=== PATIENT | female | born 1955 | race Caucasian/White ===

== ENCOUNTER 2017-08-10 10:36 | Outpatient (CLI) | payer OTHER ==
--- NOTE | 2017-08-11 12:51 | Mammography Report ---
DIGITAL SCREENING MAMMOGRAM: 08/10/2017 CLINICAL INDICATION: A 62-year-old with history of benign biopsy for screening. COMPARISON: 09/2014, 10/2012 TECHNIQUE: Routine CC and MLO projections were obtained of the breasts. FINDINGS: The breasts demonstrate scattered fibroglandular densities bilaterally. Biopsy marker in the right upper inner central breast is stable. No suspicious masses, clustered microcalcifications, or regions of architectural distortion are identified. IMPRESSION: BENIGN FINDINGS. RECOMMENDATION: Routine annual screening unless otherwise clinically indicated. BIRADS CATEGORY 2 - BENIGN FINDINGS. STANDARD QUALIFYING STATEMENTS 1. This examination was reviewed with the aid of Computer-Aided Detection (CAD). 2. A negative or benign imaging report should not delay biopsy if clinically suspicious findings are present. Consider surgical consultation if warranted. More than 5% of cancers are not identified by i maging. 3. Dense breasts may obscure an underlying neoplasm. JOB #: [id number] EXT JOB #:[id number]
== END 2017-08-10 10:37 | disposition home or self-care (01) ==
LOC: DI.S 10:36
PROVIDERS: ATTEND Family Medicine
DX: Z12.31 Encounter for screening mammogram for malignant neoplasm of breast (principal)
CPT/HCPCS: 77067

== ENCOUNTER 2019-02-09 13:39 | Outpatient (CLI) | payer MEDICARE, OTHER ==
--- NOTE | 2019-02-09 15:00 | Mammography Report ---
Reason: ENCOUNTER FOR SCREENING MAMMOGRAM FOR MALIGNANT NE Procedure Date: 02/09/2019 Accession Number: [id number] / [id number] Procedure: [facility] - Screening Mammo w/Misael CPT Code: FULL RESULT: EXAM: Screening Mammo w/Misael DATE: 02/09/2019 2:14 PM CLINICAL HISTORY: Routine screening TECHNIQUE: (B) - Bilateral CC and MLO views were obtained. COMPARISON: 08/10/2017, 09/20/2014, 10/15/2012 PARENCHYMAL PATTERN: (A) - The breasts demonstrate scattered fibroglandular densities bilaterally. FINDINGS: No significant interval change on the LEFT. A few scattered nodular densities are similar to previous There are no suspicious masses, calcifications, or areas of distortion. Stable RIGHT breast biopsy clip. In the right periareolar region 9:00 position is an enlarging nodule immediately deep to the skin surface for which ultrasound is suggested. Other scattered nodular densities in the right breast are stable. IMPRESSION: Incomplete right examination. BI-RADS category 0. Negative left breast RECOMMENDATION: (ADDUS) - Targeted ultrasound recommended. Right periareolar region. BI-RADS CATEGORY: (0) - Incomplete Examination - need additional evaluation. STANDARD QUALIFYING STATEMENTS: 1. This examination was not reviewed with the aid of Computer-Aided Detection (CAD). 2. A negative or benign imaging report should not preclude biopsy if clinically suspicious findings are present. 3. Dense breasts may obscure an underlying neoplasm. 4. This examination was reviewed with the aid of 3D breast imaging (tomosynthesis).
== END 2019-02-09 13:40 | disposition home or self-care (01) ==
LOC: DI 13:39
PROVIDERS: ATTEND Nurse Practitioner Family
DX: Z12.31 Encounter for screening mammogram for malignant neoplasm of breast (principal); R92.8 Other abnormal and inconclusive findings on diagnostic imaging of breast
CPT/HCPCS: 77063; 77067

== ENCOUNTER 2020-06-11 09:58 | Outpatient (CLI) | payer MEDICARE, OTHER ==
--- NOTE | 2020-06-11 11:49 | Ultrasound Report ---
PROCEDURE: Duplex Ext Veins Left INDICATIONS: VERICOSE VEINS TECHNIQUE: Real-time imaging, as well as color and pulse Doppler interrogation, were performed of the lower extr emity deep veins from the inguinal ligament to the popliteal fossa. COMPARISON: None. FINDINGS: The deep veins are normally compressible, and free of intraluminal thrombus. Color and pu lse Doppler demonstrate normal phasic intraluminal flow. There is normal augmentation response to di stal compression maneuver. IMPRESSION: No deep venous thrombosis. Reviewed by: Cely العراقي MD on 06/11/2020 11:48 AM PDT Approved by: Cely العراقي MD on 06/11/2020 11:48 AM PDT Station ID: [id number]
== END 2020-06-11 09:59 | disposition home or self-care (01) ==
LOC: DI 09:58
PROVIDERS: ATTEND Nurse Practitioner Family
DX: I83.819 Varicose veins of unspecified lower extremity with pain (principal)

== ENCOUNTER 2022-01-31 07:10 | Outpatient (CLI) | payer MEDICARE, OTHER ==
--- NOTE | 2022-01-31 08:33 | XRAY Report ---
PROCEDURE: Foot 3 View LT INDICATIONS: PAIN IN LEFT FOOT TECHNIQUE: 3 views of the foot were acquired. COMPARISON: None FINDINGS: Bones: No fractures or dislocations. No suspicious bony lesions. Degenerative changes in the inter phalangeal joints. No erosions or other evidence of inflammatory arthropathy. Soft tissues: No tibiotalar joint effusion. Achilles tendon appears normal. IMPRESSION: 1. No acute abnormality of the left foot. 2. Mild degenerative changes in the interphalangeal joints. Reviewed by: Rich Sorto on 01/31/2022 8:32 AM PDT Approved by: Rich Sorto on 01/31/2022 8:32 AM PDT Station ID: [id number]
[2022-01-31 15:31] LABS: ALBUMIN 4.4 g/dL (3.2-5.5); ALBUMIN/GLOBULIN RATIO 1.3 (1.0-2.2); ALKALINE PHOSPHATASE 68 IU/L (42-121); ALT ALANINE AMINOTRANSFERASE 19 IU/L (10-60); AST ASPARTATE AMINOTRANSFERASE 23 IU/L (10-42); BILIRUBIN,TOTAL 0.8 mg/dL (0.2-1.0); BUN - BLOOD UREA NITROGEN 17 mg/dL (6-20); CALCIUM 9.4 mg/dL (8.5-10.3); CARBON DIOXIDE - CO2 27 mmol/L (21-32); CHLORIDE 106 mmol/L (101-111); CHOL/HDL RATIO 2.5 (<4.4); CHOLESTEROL 198 mg/dL; CREATININE 0.6 mg/dL (0.4-1.0); GFR - MDRD 99 (>89); GLUCOSE 88 mg/dL (70-100); HDL CHOLESTEROL 79 mg/dL; POTASSIUM 3.6 mmol/L (3.5-5.0); SODIUM 141 mmol/L (135-145); TOTAL PROTEIN 7.7 g/dL (6.7-8.2); TRIGLYCERIDES 32 mg/dL
== END 2022-01-31 07:11 | disposition home or self-care (01) ==
LOC: DI.S 07:10
PROVIDERS: ATTEND Nurse Practitioner Family
DX: M19.072 Primary osteoarthritis, left ankle and foot (principal); E78.5 Hyperlipidemia, unspecified
CPT/HCPCS: 36415; 80053; 80061; 83721

== ENCOUNTER 2022-06-09 08:26 | Outpatient (CLI) | payer MEDICARE, OTHER ==
--- NOTE | 2022-06-10 11:30 | Ultrasound Report ---
LIMITED ULTRASOUND OF RIGHT BREAST: 06/09/2022 CLINICAL: Patient returns today to evaluate a focal asymmetry in the right breast. Comparison is made to exams dated: 05/01/2022 mammogram, 02/09/2019 mammogram, 08/10/2017 mammogram, a nd 09/20/2014 mammogram - [facility]. Color flow ultrasound of the right breast 9 o'clock, and retroareolar regions was performed. Rivas sc bill images of the real-time examination were reviewed. There is a benign 0.5 cm x 0.4 cm x 0.3 cm oval cyst in the right breast at 9 o'clock middle depth 1 cm from the nipple. This oval cyst is anechoic. This correlates as an incidental finding. Color fl ow imaging demonstrates that there is no vascularity present. No sonographic abnormality is seen in the right breast corresponding to the skin-based lesion seen on mammography at the 9 o'clock position approximately 1cm from the nipple. IMPRESSION: BENIGN No sonographic abnormality corresponding to the mammographic finding in the right breast 9 o'clock po sition adjacent to the skin. However, this finding does not appear significantly changed when compare d to multiple exams dating back to 09/20/2014, and is considered benign. There is no sonographic evidence of malignancy. The 0.5 cm x 0.4 cm x 0.3 cm oval cyst in the right breast is benign. Return to annual mammogram screening schedule is recommended. This exam was interpreted at Station ID: [id number]. Electronically Signed By: Parminder Latham M.D. ar/:06/09/2022 09:19:26 Ultrasound BI-RADS: 2 Benign BI-RADS CATEGORY: (2) - 2 RECOMMENDATION: (ANNUAL) - Recommend routine annual screening mammography. [id number] return to screening LATERALITY: (B)
== END 2022-06-09 08:27 | disposition home or self-care (01) ==
LOC: DI 08:26
PROVIDERS: ATTEND Nurse Practitioner Family
DX: N60.01 Solitary cyst of right breast (principal)

== ENCOUNTER 2023-12-18 10:33 | Outpatient (CLI) | payer MEDICARE, OTHER ==
--- NOTE | 2023-12-21 09:19 | Mammography Report ---
BILATERAL DIGITAL SCREENING MAMMOGRAM 3D/2D: 12/18/2023 CLINICAL: Routine screening. Comparison is made to exams dated: 05/01/2022 mammogram, 02/09/2019 mammogram, 08/10/2017 mammogram, a nd 09/20/2014 mammogram - [facility]. Both breasts are almost entirely fatty (category a/<25% glandular tissue). No significant masses, calcifications, or other findings are seen in either breast. There has been no significant interval change. IMPRESSION: NEGATIVE There is no mammographic evidence of malignancy. A 1 year screening mammogram is recommended. Based on the Tyrer Cuzick model (a risk assessment model) the patient's lifetime risk is 6.7% and her 10 year risk is 4.2%. According to the ACR, ACS, and NCCN guidelines, an annual breast MRI exam ana g with mammogram is recommended if the patient's lifetime risk is 20% or greater. This exam was interpreted at Station ID: [id number]. NOTE: For mammograms, a report in lay terms will be sent to the patient. Approximately 15% of breast malignancies will not be visualized mammographically. In the management of a palpable breast mass, a negative mammogram must not discourage biopsy of a clinically suspicious lesion. Electronically Signed By: Misti king/sebastián:12/18/2023 16:22:05 letter sent: No_Letter ACR BI-RADS Category 1: Negative 3341F PARENCHYMAL PATTERN: (F) - The breast(s) demonstrate(s) diffuse fatty replacement. BI-RADS CATEGORY: (1) - 1 RECOMMENDATION: (ANNUAL) - Recommend routine annual screening mammography. [id number] 1 year screening LATERALITY: (B)
== END 2023-12-18 10:34 | disposition home or self-care (01) ==
LOC: DI 10:33
PROVIDERS: ATTEND Nurse Practitioner Family
DX: Z12.31 Encounter for screening mammogram for malignant neoplasm of breast (principal)